=== PATIENT | male | born 2000 | race Caucasian/White ===

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

== ENCOUNTER → 2023-02-17 | Outpatient (REF) | LOC: M PLALAB 09:26 | PROVIDERS: ATTEND Internal Medicine | DX: R06.02 Shortness of breath (principal) ==

== ENCOUNTER 2023-04-03 11:45 | Day surgery (SDC) | payer OTHER ==
[~2023-04-03] VITALS: Ht 182.9 cm; Wt 102.1 kg
[~2023-04-03 11:45] MED LIST: LIDOCAINE 2% 100MG/5ML SDV (FOR ANES.) As Ordered ONE; MIDAZOLAM INJ 2MG/2ML VIAL As Ordered ONE; ONDANSETRON 4MG 2ML VIAL As Ordered ONE; ROCURONIUM BROMIDE 50MG/5ML VIAL As Ordered ONE; fentaNYL 100 MCG/2 ML INJECTION As Ordered ONE; propofoL 200 MG/20 ML VIAL As Ordered ONE
[2023-04-03] MEDS ORDERED: LR 1,000 ML IV SCH ×2 (12:20→14:00)
[2023-04-03] MEDS ORDERED: fentaNYL 100 MCG/2 ML INJECTION As Ordered ONE (12:47)
[2023-04-03] MEDS ORDERED: SUGAMMADEX SODIUM 500 MG/5 ML VIAL (BRIDION) As Ordered ONE (12:55)
[2023-04-03] MEDS ORDERED: ACETAMINOPHEN 1000MG 100ML IV BAG As Ordered ONE (12:58)
[2023-04-03] MEDS ORDERED: ONDANSETRON 4MG 2ML VIAL IV PRN (13:05)
[2023-04-03] MEDS ORDERED: MORPHINE 2 MG/ML 1ML VIAL IV PRN (13:05)
[2023-04-03] MEDS ORDERED: oxyCODONE 5MG TAB PO PRN (13:05)
[2023-04-03] MEDS ORDERED: fentaNYL 100 MCG/2 ML INJECTION IV PRN (13:05)
[2023-04-03] MEDS ORDERED: HYDROcodone/APAP LIQUID 7.5-325MG 15ML UDC (LORTAB ELIXIR) PO PRN (14:00)
[2023-04-03] MEDS ORDERED: MORPHINE 10 MG/ML 1ML VIAL IV ONE (15:40)
[2023-04-03 16:15] VITALS: BP 128/72; TEMP 97.3; O2SAT 100
== END 2023-04-03 16:19 | disposition home or self-care (01) ==
LOC: M SDC 11:45
PROVIDERS: ATTEND Otolaryngology
DX: J35.03 Chronic tonsillitis and adenoiditis (principal); G47.30 Sleep apnea, unspecified
CPT/HCPCS: 42821; 88302; J0131; J0665; J1100; J2250; J2405; J3010